=== PATIENT | female | born 1960 | race African-American/Black ===

== ENCOUNTER 2018-01-16 04:56 | Emergency (ER) | payer MEDICARE ==
[~2018-01-16] VITALS: Ht 175.3 cm; Wt 115.2 kg
[2018-01-16 05:51] LABS: APPEARANCE CLEAR ((CLEAR)); BILIRUBIN NEGATIVE; BLOOD NEGATIVE; COLOR COLORLESS ((YELLOW)); GLUCOSE (STRIP) NEGATIVE; KETONES NEGATIVE; LEUKOCYTES NEGATIVE; NITRITE NEGATIVE; PROTEIN (STRIP) NEGATIVE; SPECIFIC GRAVITY 1.002 (1.000-1.030); UCUL ADDED? NO; UROBILINOGEN 0.2 MG/DL (0.2-1.0)
[2018-01-16 06:07] LABS: HEMATOCRIT 38.2 % (36.0-46.0); HEMOGLOBIN 12.7 G/DL (11.9-15.5); MCH 29.9 PG (29.0-34.0); MCHC 33.2 G/DL (30.0-36.0); MCV 89.9 FL (83-99); PLATELET COUNT 254 K/uL (156-360); RBC DIS.WIDTH-SD 39.5 % (39-53); RED BLOOD COUNT 4.25 M/uL (3.80-5.20); WHITE BLOOD COUNT 4.2 K/uL (4.1-10.2)
[2018-01-16 06:08] LABS: INTER. NORMALIZED RATIO 1.6
[2018-01-16 06:11] LABS: PTT 35.3 SEC (25-37)
[2018-01-16 06:13] LABS: ALBUMIN 3.9 g/dL (3.2-4.8); CHLORIDE 104 mEq/L (99-109); POTASSIUM 3.7 mEq/L (3.7-5.4); SODIUM 139 mEq/L (136-147)
[2018-01-16 06:15] LABS: TOTAL BILIRUBIN 0.5 mg/dL (0.0-1.0)
[2018-01-16 06:16] LABS: GLUCOSE 102 mg/dL (70-99); TOTAL PROTEIN 6.5 g/dL (6.4-8.3)
[2018-01-16 06:18] LABS: TROP-I INTERPRETATION NEGATIVE; TROPONIN-I < 0.01 ng/mL (0.0-0.30)
[2018-01-16 06:19] LABS: ALKALINE PHOSPHATASE 120 IU/L (3-129); CREATININE 0.8 mg/dL (0.6-1.3); GFR ESTIMATE (CALCULATED) > 59 mL/min/
[2018-01-16 06:20] LABS: UREA NITROGEN (BUN) 16 mg/dL (9-23)
[2018-01-16 06:21] LABS: AST (GOT) 14 IU/L (2-34)
[2018-01-16 06:22] LABS: ALT (GPT) 6 IU/L (3-49)
[2018-01-16 06:23] LABS: LIPASE 22 U/L (1.0-51.0)
[2018-01-16 07:47] VITALS: BP 146/72
== END 2018-01-16 07:48 | disposition left against medical advice (07) ==
LOC: EME 04:56
PROVIDERS: Emergency Medicine
DX: R42 Dizziness and giddiness (principal); I10 Essential (primary) hypertension; Z86.711 Personal history of pulmonary embolism; Z79.01 Long term (current) use of anticoagulants
CPT/HCPCS: 70450; 71045; 80053; 81003; 83690; 84484; 85027; 85610; 85730; 93005; 99281; 99285; J7030